=== PATIENT | male | born 1995 | race Caucasian/White ===

== ENCOUNTER 2017-04-15 13:00 | Emergency (ER) | payer BC ==
[2017-04-15 13:54] VITALS: BP 124/76
--- NOTE | 2017-04-15 14:20 | UC ---
HPI Wound/Suture Re-check - HPI Summary HPI Summary: 21 y/o male presents to the urgent care for suture removal of his chin. Laceration happened at a bar in [place] on 04/05/2017. Pt denies any signs of infection, fever, N/V/D. He was placed 4 sutures, one came off. - History Of Current Complaint Chief Complaint: [place] Stated Complaint: SUTURE REMOVAL Time Seen by Provider: 04/15/17 14:11 Hx Obtained From: Patient Onset/Duration: Sudden Onset, Lasting Days - 10 days, Still Present Surgical Site: chin Severity: Mild Pain Intensity: 0 Pain Scale Used: 0-10 Numeric Procedure Type: sutures Surgery Date: 04/05/17 - Allergies/Home Medications Allergies/Adverse Reactions: Allergies Allergy/AdvReac Type Severity Reaction Status Date / Time No Known Allergies Allergy Verified 04/15/17 13:47 Home Medications: Home Medications Lamotrigine [Lamictal] 50 mg PO BEDTIME 04/15/17 [History Confirmed 04/15/17] Topiramate TAB(*) [Topamax 25 MG tab] 50 mg PO BEDTIME 04/15/17 [History Confirmed 04/15/17] PMH/Surg Hx/FS Hx/Imm Hx Previously Healthy: Yes Neurological History: Migraine Psychological History: Bipolar Disorder - Surgical History Surgical History: None - Family History Known Family History: Positive: Cardiac Disease, Hypertension, Diabetes - Social History Occupation: Employed Full-time Lives: With Family Alcohol Use: Occasionally Substance Use Type: None Smoking Status (MU): Never Smoked Tobacco Review of Systems Constitutional: Negative Skin: Other - suture removal s/p chin laceration Eyes: Negative ENT: Negative Respiratory: Negative Cardiovascular: Negative Gastrointestinal: Negative Genitourinary: Negative Motor: Negative Neurovascular: Negative Musculoskeletal: Negative Neurological: Negative Psychological: Negative Is Patient Immunocompromised?: No All Other Systems Reviewed And Are Negative: Yes Physical Exam Triage Information Reviewed: Yes Vital Signs: Initial Vital Signs Temp 98.5 F 04/15/17 13:49 Pulse 74 04/15/17 13:49 Resp 16 04/15/17 13:49 BP 124/76 04/15/17 13:49 Pulse Ox 100 04/15/17 13:49 - Additional Comments Vital Signs Reviewed: Yes Eyes: Positive: Conjunctiva Clear - PERRLA, EOMI ENT: Positive: Normal ENT inspection, Hearing grossly normal, Pharynx normal, TMs normal Neck: Positive: Supple, Nontender, No Lymphadenopathy Respiratory: Positive: Chest nontender, Lungs clear, Normal breath sounds Cardiovascular: Positive: RRR, No Murmur, Pulses Normal Abdomen Description: Positive: Nontender, No Organomegaly, Soft. Negative: CVA Tenderness (R), CVA Tenderness (L) Bowel Sounds: Positive: Present Musculoskeletal: Positive: Strength Intact, ROM Intact, No Edema Neurological Exam: Normal Psychological Exam: Normal Skin: Positive laceration of the chin healing well, no signs of infection, 3 sutures in placed. Course/Dx - Course Course Of Treatment: 21 y/o male presents to the urgent care for suture removal of his chin. Laceration happened at a bar in [place] on 04/05/2017. Pt denies any signs of infection, fever, N/V/D. He was placed 4 sutures, one came off. Hx obtained. 3 sutures removed from chin w/o any difficulty. Pt tolerated well procedure. Rx bacitracin ointment. advised if signs of infection to return to the urgent care or PCP for further treatment. Pt understood and agreed. - Differential Dx - Laceration/Wound Differential Diagnoses: Dehiscence, Healing Wound, Suture Removal Provider Diagnoses: 1- Suture removal s/p chin laceration Discharge - Discharge Plan Condition: Stable Disposition: HOME Prescriptions: Bacitracin OINTMENT* 1 applic TOPICAL TID #1 tube Patient Education Materials: Acute Wound Care (ED) Referrals: Gloria Mcconnell NP [Primary Care Provider] - If Needed Additional Instructions: 1-Please apply medication as directed. 2-If symptoms do not improve or worsen please f/u with your PCP or return to the urgent care for further evaluation and treatment.
== END 2017-04-15 14:28 | disposition home or self-care (01) ==
LOC: UCCORT 13:00
DX: S01.81XD Laceration without foreign body of other part of head, subsequent encounter (principal); W45.8XXD Other foreign body or object entering through skin, subsequent encounter; G43.909 Migraine, unspecified, not intractable, without status migrainosus; F31.9 Bipolar disorder, unspecified
CPT/HCPCS: 99212; G0463